=== PATIENT | female | born 1980 | race Caucasian/White ===

== ENCOUNTER 2019-01-14 04:59 | Emergency (ER) | payer BC ==
[~2019-01-14] VITALS: Ht 157.5 cm; Wt 106.6 kg
[~2019-01-14 04:59] MED LIST: Z.0.KLONOPIN2 MG; Z.0.SYNTHROID25 MCG; Z.0.ZOLOFT100 MG
--- OUTSIDE RECORDS SUMMARY | 2019-01-14 05:01 | XMS REPORT ---
Author Author [facility] Address Unknown Phone Unavailable Care Team Providers Care Facilities Engineering Manager Name Role Phone Sonia PONCE Unavailable Unavailable Problems This patient has no known problems. Allergies, Adverse Reactions, Alerts This patient has no known allergies or adverse reactions. Medications This patient has no known medications. Results Test Description Test Time Test Comments Text Results Atomic Results Result Comments CT BRAIN WO [place] [address] Patient Name: MARY ALICE MARTINEZ MR #: [id number] : 1980 Age/Sex: 37/F Req #: [id number] Adm Physician: Ordered by: ANDRE PONCE MD Report #: [id number] Location: ER Room/Bed: Procedure: [id number] CT/CT BRAIN WO Exam Date: 06/24/17 Exam Time: 0450 REPORT STATUS: Signed History: Head injury Comparison studies: None Technique: Axial images were obtained from the skull base to the vertex. Coronal and sagittal reconstructions obtained from the axial data. Findings: Scalp/skull: Left parietal scalp hematoma. No fractures, blastic or lytic lesions. Extra-axial spaces: No masses. No fluid collections. Brain sulci: Appropriate for age. Ventricles: Normal in size and configuration. No hydrocephalus. Parenchyma: No abnormal densities. No masses, hemorrhage, acute or chronic cortical vascular insults. Sellar/suprasellar region: No abnormalities Craniocervical junction: Patent foramen magnum. No Chiari one malformation. IMPRESSION: No abnormalities . Signed by: DR Naif Spring M.D. on 06/24/2017 5:18 AM Dictated By: SUMMER POTTER MD 7 Transcribed By: KYLAH on 06/24/17517 COPY TO: ANDRE PONCE MD
== END 2019-01-14 05:20 | disposition left against medical advice (07) ==
LOC: ER 04:59
DX: M25.512 Pain in left shoulder (principal); X50.0XXA Overexertion from strenuous movement or load, initial encounter; Y93.F2 Activity, caregiving, lifting; Y92.129 Unspecified place in nursing home as the place of occurrence of the external cause; F17.200 Nicotine dependence, unspecified, uncomplicated; F41.9 Anxiety disorder, unspecified; F32.9 Major depressive disorder, single episode, unspecified; K21.9 Gastro-esophageal reflux disease without esophagitis; G25.81 Restless legs syndrome

== ENCOUNTER → 2021-09-13 | Outpatient (CLI) | payer BC ==
[~2021-09-13] MED LIST changes: +PRAMIPEXOLE D0.25 MG PO; -Z.0.ZOLOFT100 MG; +Z.0.ZOLOFT100 MG PO
== END ==
LOC: MAMMO 08:39
PROVIDERS: ATTEND Family Medicine
DX: Z12.31 Encounter for screening mammogram for malignant neoplasm of breast (principal)
CPT/HCPCS: 77067